=== PATIENT | male | born 1985 | race Caucasian/White ===

== ENCOUNTER 2025-03-18 20:48 | Emergency (ER) | payer SELFPAY ==
[2025-03-18] MEDS ORDERED: Fluorescein Opthalmic Strip ONE (21:18)
[2025-03-18] MEDS ORDERED: Tetracaine 0.5% PF 4 ML BOT ONE (21:18)
== END 2025-03-18 21:57 | disposition home or self-care (01) ==
LOC: MADERS 20:48
DX: H00.015 Hordeolum externum left lower eyelid (principal); Z87.891 Personal history of nicotine dependence
CPT/HCPCS: 99283